=== PATIENT | male | born 1995 | race Caucasian/White ===

== ENCOUNTER 2020-04-15 08:45 | Emergency (ER) | payer OTHER ==
[~2020-04-15] VITALS: Ht 172.7 cm; Wt 79.4 kg
[2020-04-15 08:45] VITALS: BP_SYST 108
--- NOTE | 2020-04-15 08:45 | NUR ---
Pt presents to ER with small cut on finger does not complain of pain at this time, VSS, no distress noted, cooperative with commands and staff. MD ashlee cárdenas.
--- NOTE | 2020-04-15 08:45 | NUR ---
Pt arrived with law enforcement for blood draw, placed in H1
--- NOTE | 2020-04-15 08:50 | NUR ---
ER at bedside examining patient.
--- NOTE | 2020-04-15 09:15 | NUR ---
Blood draw completed for law enforcement by Dr Benedict, use of Iodine to strerilize site, both blood tubes filled appropriately, and needlestick site covered with gauze and tape.
[2020-04-15] MEDS ORDERED: DIPH-TET-PERTUS Vaccine 0.5 ML VIAL (ADACEL) I.M. ONE (09:45)
[2020-04-15 09:54] VITALS: BP_SYST 108
--- NOTE | 2020-04-15 10:10 | NUR ---
Pt given AMA paperwork pt left with father
== END 2020-04-15 10:10 | disposition left against medical advice (07) ==
LOC: SED 08:45
DX: S00.81XA Abrasion of other part of head, initial encounter (principal); V69.50XA Passenger in heavy transport vehicle injured in collision with unspecified motor vehicles in traffic accident, initial encounter; Y93.89 Activity, other specified; Y92.413 State road as the place of occurrence of the external cause; Y99.8 Other external cause status
CPT/HCPCS: 99283